=== PATIENT | male | born 1945 | race Caucasian/White ===

== ENCOUNTER 2017-07-04 07:38 | Day surgery (SDC) | payer BC ==
[~2017-07-04 07:38] MED LIST: ACETAMINOPHEN 1,000 MG/100 ML BTL IV ONE; CEFAZOLIN 2 Gram 2 GM/50 ML BAG IVPB ONE
[2017-07-04] MEDS ORDERED: ONDANSETRON HCL IV 4 MG/2 ML VIAL IVP ONE (07:39)
[2017-07-04] MEDS ORDERED: METHYLPREDNISOLONE 40MG/VIAL IM ONE (07:39)
[2017-07-04] MEDS ORDERED: LIDOCAINE 2% MDV (20MG/ML) 20ML VIAL IV ONE ×2 (07:39)
[2017-07-04] MEDS ORDERED: KETOROLAC 30 MG/ML VIAL IVP ONE (07:39)
[2017-07-04] MEDS ORDERED: HYDROCODONE/APAP 7.5/325MG TABLET PO ONE (07:39)
[2017-07-04] MEDS ORDERED: FENTANYL PF 100MCG/2ML VIAL IV ONE (07:39)
[2017-07-04] MEDS ORDERED: MORPHINE SULFATE 5 MG/ML PFS IVP ONE (07:39)
[2017-07-04] MEDS ORDERED: MIDAZOLAM HCL 2MG/2ML VIAL IV ONE (07:39)
[2017-07-04] MEDS ORDERED: SEVOFLURANE 250 ML INH ONE (07:39)
[2017-07-04] MEDS ORDERED: PROPOFOL 10 MG/ML VIAL IV ONE (07:39)
--- NOTE | 2017-07-04 20:02 | Operative Note ---
DATE: 07/04/2017 PREOPERATIVE DIAGNOSIS: INTERNAL DERANGEMENT LEFT KNEE. POSTOPERATIVE DIAGNOSES: 1. DIFFUSE SYNOVITIS. 2. GRADE 3 CHONDROMALACIA PATELLA. 3. GRADE 3 CHONDROMALACIA OF THE NOTCH. 4. COMPLEX DEGENERATIVE TEAR INVOLVING THE POSTERIOR MEDIAL CORNER OF THE MEDIAL MENISCUS. 5. LOOSE BODY IN THE NOTCH. 6. 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 7. SPLIT TEAR INVOLVING THE POSTERIOR HORN OF THE LATERAL MENISCUS. 8. GRADE 3 CHONDROMALACIA OF THE LATERAL FEMORAL CONDYLE. PROCEDURE: 1. LEFT KNEE ARTHROSCOPY WITH PARTIAL MEDIAL AND LATERAL MENISCECTOMIES. 2. LEFT KNEE ARTHROSCOPY WITH COMPLETE SYNOVECTOMY. 3. LEFT KNEE ARTHROSCOPY WITH REMOVAL OF LOOSE BODY. 4. LEFT KNEE ARTHROSCOPY WITH CHONDROPLASTY OF THE PATELLOFEMORAL COMPARTMENT AND MEDIAL AND LATERAL COMPARTMENTS. STAFF SURGEON: MAYA MCNAIR M.D. ANESTHESIA: GENERAL. PREPARATION: CHLORAPREP. INDIVIDUAL CONSIDERATIONS: NONE. PROCEDURE: The patient was taken to the Operating Room and placed supine on the operating table. He had a successful induction with general anesthetic. His left lower extremity was prepped and draped in the usual fashion. The patient had a superior lateral inflow cannula placed. The skin was infiltrated with 0.5% Marcaine with Epinephrine prior. A clear effusion was drained and the knee was inflated with normal saline. An inferior medial and an inferior lateral portal were made in a similar fashion. The arthroscope was introduced through the inferior lateral portal up into the pouch. In the notch and the pouch, the patient had diffuse synovitis of the pouch and both gutters and this was debrided out with a shaver. Grade 3 changes were seen in the patella and also in the notch with peeling cartilage at the periphery of the notch, which I smoothed with a shaver. Medially, he had a complex degenerative flap tear involving the posterior medial corner of the medial meniscus. This was smoothed off with a shaver with basket forceps also. He had a chondral lesion of the femoral condyle centered at 45 degrees from the midline and just extending laterally with peeling cartilage down to bone. The loose cartilage was debrided out. This was about the shape of an elongated quarter. Centrally in the notch, the ACL and PCL were intact but I did find a 1 cm loose body, which was removed. Laterally, a degenerative split tear involving the posterior horn of the lateral meniscus was debrided back to a stable rim with basket forceps and a shaver and grade 3 changes of the femoral condyle were smoothed with a shaver. I then looked through the knee to make sure there was no further floating debris. The portals were closed with minh. 40 mg of DepoMedrol with 5 mg Morphine and 15 mL of 0.5% Marcaine with Epinephrine were injected into the knee and a sterile Bulkee compressive dressing was applied. The patient tolerated the procedure well. Needle and sponge counts were correct. Estimated blood loss was minimal and he was taken back to Recovery in good condition. There were no complications. cc: Dr. Devon Boyle JOB NUMBER: [id number] MTDD
== END 2017-07-04 11:05 | disposition home or self-care (01) ==
LOC: SUR 07:38
PROVIDERS: ATTEND Orthopaedic Surgery
DX: M23.222 Derangement of posterior horn of medial meniscus due to old tear or injury, left knee (principal); M22.42 Chondromalacia patellae, left knee; M94.262 Chondromalacia, left knee; M23.42 Loose body in knee, left knee
CPT/HCPCS: 29880; 29876; 01400; J1885; J2405; J3010; J0690; J2270; J1030